=== PATIENT | female | born 1990 | race Caucasian/White ===

== ENCOUNTER 2016-11-11 19:19 | Emergency (ER) | payer OTHER | END 2016-11-11 21:37 | disposition home or self-care (01) | LOC: FER 19:19 | DX: M54.6 Pain in thoracic spine (principal); M79.642 Pain in left hand; Z88.0 Allergy status to penicillin; V49.50XA Passenger injured in collision with unspecified motor vehicles in traffic accident, initial encounter; Y92.410 Unspecified street and highway as the place of occurrence of the external cause | CPT/HCPCS: 72050; 72072; 72110; 73130 ==